=== PATIENT | female | born 1960 | race Caucasian/White ===

== ENCOUNTER → 2023-07-19 08:21 | Outpatient (REF) | payer MEDICARE, OTHER, SELFPAY | LOC: WDC 08:21 | PROVIDERS: ATTENDING PHYSICIAN Nurse Practitioner Family | DX: Z12.31 Encounter for screening mammogram for malignant neoplasm of breast (principal) | CPT/HCPCS: 77063; 77067 ==

== ENCOUNTER → 2024-07-23 06:41 | Outpatient (REF) | payer MEDICARE, OTHER, SELFPAY | LOC: WDC 06:41 | PROVIDERS: ATTENDING PHYSICIAN Nurse Practitioner | DX: Z12.31 Encounter for screening mammogram for malignant neoplasm of breast (principal) | CPT/HCPCS: 77063; 77067 ==